=== PATIENT | female | born 1995 | race Caucasian/White ===

== ENCOUNTER 2021-09-08 14:53 | Inpatient (IN) | payer OTHER ==
[~2021-09-08] VITALS: Ht 160 cm; Wt 93.4 kg
[2021-09-08 15:53] LABS: HCT 39.8 % (37.0-47.0); HGB 14.2 g/dl (12.5-16.0); MCH 32.8 pg (25.0-31.0); MCHC 35.7 g/dL (32.0-36.0); MCV 91.9 fL (78.0-100.0); MPV 11.2 fL (6.0-9.5); RBC 4.33 M/uL (4.20-5.40); RDW 13.4 % (11.5-14.0); WBC 8.8 K/uL (4.0-10.5)
[2021-09-08 15:55] LABS: BILIRUBIN NEGATIVE (NEGATIVE); BLOOD TRACE-INTACT Ery/uL (NEGATIVE); CLARITY CLEAR (CLEAR); COLOR YELLOW (YELLOW); GLUCOSE (U) NORMAL (NORMAL); LEUKOCYTES 3+ Leu/uL (NEGATIVE); NITRITE NEGATIVE (NEGATIVE); PROTEIN NEGATIVE (NEGATIVE); SPECIFIC GRAVITY 1.015 (1.001-1.030); UROBILINOGEN 0.2 mg/dL (0.2-1.0)
[2021-09-08 16:02] LABS: BACTERIA TRACE; YEAST PRESENT
[2021-09-08 16:04] LABS: AMPHETAMINES NEGATIVE (NEGATIVE); BARBITURATES NEGATIVE (NEGATIVE); ECSTASY (MDMA) NEGATIVE (NEGATIVE); MARIJUANA (THC) NEGATIVE (NEGATIVE); METHADONE NEGATIVE (NEGATIVE); OPIATES NEGATIVE (NEGATIVE); OXYCODONE NEGATIVE (NEGATIVE)
[2021-09-08 16:12] LABS: PROTEIN:CREATININE 0.14 RATIO; URINE CREATININE 79.53 mg/dL (29.00-226.00); URINE TOTAL PROTEIN-RANDOM 11.9 mg/dL (<11.9)
[2021-09-08 16:15] LABS: ALBUMIN 2.9 g/dL (3.4-5.0); BILIRUBIN - TOTAL 0.3 mg/dL (0.2-1.0); BUN/CREAT RATIO (CALC) 12.5 RATIO; CREATININE 0.64 mg/dL (0.51-0.95); GLOBULIN (CALCULATION) 3.4 g/dL; POTASSIUM 3.6 mmol/L (3.5-5.1); TOTAL PROTEIN 6.3 g/dL (6.4-8.2)
[2021-09-10 06:15] LABS: HCT 35.1 % (37.0-47.0); HGB 11.8 g/dl (12.5-16.0); MCH 31.8 pg (25.0-31.0); MCHC 33.6 g/dL (32.0-36.0); MCV 94.6 fL (78.0-100.0); MPV 11.5 fL (6.0-9.5); RBC 3.71 M/uL (4.20-5.40); RDW 13.5 % (11.5-14.0); WBC 13.3 K/uL (4.0-10.5)
[2021-09-11] MEDS ORDERED: PRENATAL FORMU1 EACH PO (09:53)
[2021-09-11] MEDS ORDERED: IBUPROFEN800 M1 PO (09:53)
[2021-09-11] MEDS ORDERED: COLACE100 MG PO (09:53)
== END 2021-09-11 11:45 | disposition home or self-care (01) | DRG 807 ==
LOC: FOB 14:53 → FOD 14:53 → FOB 18:11
PROVIDERS: Obstetrics & Gynecology; ADMIT Specialist
PROC: 3E0P7VZ Introduction of Hormone into Female Reproductive, Via Natural or Artificial Opening (ICD-10-PCS; 2021-09-08)
PROC: 10E0XZZ Delivery of Products of Conception, External Approach (ICD-10-PCS; principal; 2021-09-09)
PROC: 0KQM0ZZ Repair Perineum Muscle, Open Approach (ICD-10-PCS; 2021-09-09)
DX: O13.4 Gestational [pregnancy-induced] hypertension without significant proteinuria, complicating childbirth (principal); Z37.0 Single live birth; Z3A.38 38 weeks gestation of pregnancy; O99.02 Anemia complicating childbirth; O70.1 Second degree perineal laceration during delivery; Z28.310 Unvaccinated for COVID-19
CPT/HCPCS: 36415; 80053; 80305; 81001; 82570; 83615; 84156; 84550; 86850; 86900; 86901; J0595; J2405; J7120